=== PATIENT | male | born 1960 | race Caucasian/White ===

== ENCOUNTER 2018-02-12 09:27 | Emergency (ER) | payer OTHER ==
[~2018-02-12] VITALS: Ht 175.3 cm; Wt 77.1 kg
[2018-02-12 09:43] LABS: ABSOLUTE BASOPHILS 0.1 thou/uL (0.0-0.2); ABSOLUTE EOSINOPHILS 0.1 thou/uL (0.0-0.7); ABSOLUTE LYMPHOCYTES 2.5 thou/uL (0.8-5.3); ABSOLUTE NEUTROPHILS 6.4 thou/uL (1.6-8.1); HEMOGLOBIN 15.2 gm/dL (14.0-18.0); LYMPHOCYTES 24.4 %; MCH 31.2 pg (26.0-34.0); MCHC 33.7 g/dL (28.0-37.0); MCV 92.8 fL (80.0-100.0); MPV 7.9 fl. (7.2-11.1); NUCLEATED RBCS 0 /100WBC; PLATELET COUNT* 310 thou/uL (150-400); POLYS 63.6 %; RBC 4.85 mil/uL (4.50-6.00); RDW-CV 12.9 % (10.5-14.5); WBC 10.1 thou/uL (4.0-11.0)
[2018-02-12 09:52] LABS: ANION GAP 5 mmol/L (7-16); BUN 13 mg/dL (7-18); CALCIUM 9.1 mg/dL (8.5-10.1); CHLORIDE 102 mmol/L (98-107); CO2 33 mmol/L (21-32); GLUCOSE 104 mg/dL (70-99); POTASSIUM 3.5 mmol/L (3.5-5.1); SODIUM 140 mmol/L (136-145)
[2018-02-12 09:55] LABS: APTT 26.6 Seconds (25.0-31.3)
[2018-02-12 10:12] LABS: ALBUMIN 4.1 g/dL (3.4-5.0); ALKALINE PHOSPHATASE 73 U/L (46-116); CK-MB MASS 1.1 ng/mL (<0.5-3.6); LIPASE 119 U/L (73-393); MAGNESIUM 1.9 mg/dL (1.8-2.4); NT-PRO BRAIN NAT PEPTIDE 98 pg/mL (<300); SGOT 22 U/L (15-37); SGPT 36 U/L (30-65); TOTAL BILIRUBIN 0.9 mg/dL (<0.1-1.0); TOTAL PROTEIN 7.8 g/dL (6.4-8.2); TROPONIN-I LEVEL <0.06 ng/mL (<0.06)
[2018-02-12 10:21] VITALS: BP 169/103
--- NOTE | 2018-02-12 16:26 | EKG ---
[place] [address] ELECTROCARDIOGRAM REPORT Name: TOSHA QUIÑONES Room: [facility]#: [id number] Admission: 02/12/18 Attend Phys: Discharge: 02/12/18 Date of : 60 Report #: [id number] THIS REPORT FOR: //name// [facility] ED Test Date: 2018-02-12 Test Time: 09:31:28 Pat Name: TOSHA QUIÑONES Department: Room: Gender: M [employer]vertising Agency Manager: : [id number] Requested By: Nader Lr Order Number: [id number] MD: Vu Barnard Measurements Intervals [place] Rate: 75 P: 40 LA: 151 QRS: 24 QRSD: 95 T: 28 QT: 381 QTc: 426 Interpretive Statements Sinus rhythm Baseline wander in lead(s) V3 No previous ECG available for comparison Electronically Signed On 02-12-2018 16:26:11 CDT by Vu Barnard [email or web address] <ELECTRONICALLY SIGNED> By: Vu Barnard MD, [facility] 02/12/18 1626 0931 0931 Vu Barnard MD, FACC /EPI
== END 2018-02-12 10:23 | disposition home or self-care (01) ==
LOC: M.ERS 09:27
PROVIDERS: Family Medicine
DX: R07.9 Chest pain, unspecified (principal)